=== PATIENT | female | born 1975 | race Asian ===

== ENCOUNTER → 2018-11-04 | Emergency (ER) | payer SELFPAY ==
[~2018-11-04] VITALS: Ht 152.4 cm; Wt 51.7 kg
[~2018-11-04] MED LIST: DIPHTH/TET/ACEL PERTUSS (ADULT) 0.5 ML VIAL IM* ONE
[2018-11-04 00:33] VITALS: BP 112/57; PULSE 61; RESP 20; Ht 152.4 cm; Wt 51.7 kg
--- NOTE | 2018-11-04 03:30 | ERD ---
ER Documentation Chief Complaint Chief Complaint forehead lac, metal object fell on head x 1 hour ago, no ko HPI 42-year-old female presents to the emergency department complaining of mild pain to the forehead due to laceration which occurred just prior to arrival. The patient states she was at work when a small piece of a metal vacuum fell approximately 1 feet onto the forehead. She has had no nausea, vomiting, confusion, ataxia, loss of consciousness, or other symptoms. She took no medication for relief of symptoms prior to arrival. No other symptoms reported currently. ROS All systems reviewed and are negative except as per history of present illness. Allergies Allergies: Coded Allergies: No Known Drug Allergies (Verified Allergy, Unknown, 11/04/18) PMhx/Soc Medical and Surgical Hx: pt denies Medical Hx, pt denies Surgical Hx Hx Alcohol Use: No Hx Substance Use: No Hx Tobacco Use: No Smoking Status: Never smoker FmHx Family History: No diabetes Physical Exam Vitals Vital Signs Date Temp Pulse Resp B/P (MAP) Pulse Ox O2 O2 Flow FiO2 Time Delivery Rate 11/04/18 97.2 61 20 112/57 99 00:33 (75) Physical Exam Const: No acute distress Head: There is an approximate 1 cm superficial laceration noted to the superior forehead with no evidence of foreign body or active bleeding. Eyes: Normal Conjunctiva ENT: Normal External Ears, Nose and Mouth. Neck: Full range of motion. No meningismus. Resp: No respiratory distress. Skin: No petechiae or rashes Back: No midline or flank tenderness Ext: No cyanosis, or edema Neur: Awake and alert. No neurological deficits. Psych: Normal Mood and Affect Results 24 hrs Current Medications Medications Dose Sig/Janet Start Time Status Last (Trade) Ordered Route PRN Stop Time Admin Dose Reason Admin Diphtheria/ 0.5 ml ONCE ONCE 11/04/18 Tetanus/Acell IM* 03:30 11/04/18 Pertussis 03:31 (Adacel) Procedures/MDM 42-year-old female presents to the emergency department for superficial laceration to the forehead. She was given the full risks, benefits, alternatives to laceration with Dermabond and she gave verbal agreement. Laceration Repair by me: Anesthesia: None Location: Superior forehead Tendon/Joint/Nerves: No injury Foreign body: None detected after copious irrigation and exploration Technique: Tissue adhesive Complexity: No subcutaneous sutures/mucosal repair/edge excision Post Closure Length: 1 cm Patient's bleeding was easily controlled in the department and there is no indication of anemia. No evidence of compartment syndrome, neurologic injury, vascular injury, open joint, tendon laceration, or foreign body. Patient is appropriate for outpatient follow up. 48 hour wound check. Scar minimization instructions given. No evidence of life-threatening pathology at time of discharge. Pt/family in agreement with discharge plan/diagnosis. Pt/family advised to return immedia tely with any new or worsening symptoms. Follow-up with primary care physician within the next 1-2 days. Departure Diagnosis: Primary Impression: Forehead laceration Encounter type: initial encounter Qualified Codes: S01.81XA - Laceration without foreign body of other part of head, initial encounter Condition: Fair Patient Instructions: Laceration, Face (Skin Glue) Additional Instructions: Call your primary care doctor TOMORROW for an appointment during the next 1-2 days.See the doctor sooner or return here if your condition worsens before your appointment time. LAUREN SINGH PA-C Nov 04, 2018 03:30
== END | disposition home or self-care (01) ==
LOC: FTE 00:17
DX: S01.81XA Laceration without foreign body of other part of head, initial encounter (principal); W20.8XXA Other cause of strike by thrown, projected or falling object, initial encounter; Y92.89 Other specified places as the place of occurrence of the external cause; Z23 Encounter for immunization
CPT/HCPCS: 90471; 90715